=== PATIENT | female | born 1945 | race African-American/Black ===

== ENCOUNTER 2019-06-26 19:56 | Inpatient (IN) ==
[2019-06-26] MEDS ORDERED: 0.9 % Sodium Chloride 1,000 ML ONE (20:08)
[2019-06-26] MEDS ORDERED: 0.9 % Sodium Chloride 1,000 ML IVC ONE ×2 (20:13→21:44)
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
[2019-06-26 20:38] LABS: Basophils % 0.1 %; Hematocrit 37.3 % (35.3-44.9); Hemoglobin 13.2 g/dL (11.5-15.4); Immature Granulocytes % 0.7 % (0-4); Lymphocytes # 0.9 K/mcL (0.6-4.6); Lymphocytes % 5.2 %; Mean Corpuscular HGB Conc 35.4 g/dL (31.6-35.5); Mean Corpuscular Hemoglobin 31.4 pg (28.0-33.3); Mean Corpuscular Volume 88.6 fL (83.0-100.0); Mean Platelet Volume 10.5 fL (9.4-12.4); Monocytes # 1.4 K/mcL (0.0-1.3); Monocytes % 8.2 %; Neutrophils # 14.4 K/mcL (1.6-8.9); Platelet Count 230 K/mcL (140-400); Red Blood Count 4.21 M/mcL (3.82-4.97); Red Cell Distribution Width 12.3 % (11.5-14.5); Segmented Neutrophils % 85.8 %; White Blood Count 16.8 K/mcL (4.3-11.1)
[2019-06-26 20:46] LABS: INR 1.2; Prothrombin Time 13.5 Seconds (9.4-12.1)
[2019-06-26 20:49] LABS: Activated Partial Thrombo Time 30.1 Seconds (26.0-36.0)
[2019-06-26] MEDS ORDERED: Piperacillin/Tazobactam 3.375 GM in 0.9 % Sodium Chloride Mini Bag 100 ML IVPB ONE (20:50)
[2019-06-26 20:56] LABS: Alanine Aminotransferase 25 Units/L (7-52); Albumin 3.6 g/dL (3.5-5.7); Albumin/Globulin Ratio 1.1 (1.1-2.2); Alkaline Phosphatase 61 Units/L (34-104); Aspartate Amino Transferase 33 Units/L (13-39); BUN/Creatinine Ratio 21 (6-26); Bilirubin,Direct 0.9 mg/dL (0.0-0.2); Bilirubin,Indirect 0.8 mg/dL (0.0-1.2); Bilirubin,Total 1.7 mg/dL (0.3-1.0); Blood Urea Nitrogen 21 mg/dL (8-23); Calcium 8.9 mg/dL (8.6-10.3); Carbon Dioxide 23 mEq/L (23-29); Chloride 94 mEq/L (98-107); Globulin 3.4 g/dL (2.4-3.5); Glucose 121 mg/dL (70-105); Magnesium 1.9 mg/dL (1.6-2.6); Osmolality,Calculated 274 (280-300); Phosphorous 2.2 mg/dL (2.7-4.5); Potassium 3.6 mEq/L (3.5-5.1); Sodium 130 mEq/L (136-145); Troponin I 0.03 ng/mL (< 0.04); eGFR For African Americans > 60 (> 60); eGFR For Non-African Americans 54 (> 60)
[2019-06-26 21:08] LABS: Thyroid Stimulating Hormone 0.723 mcIU/mL (0.340-5.600)
--- NOTE | 2019-06-26 21:09 | Emergency Department Note ---
Disposition Clinical Impression: Hyponatremia Sepsis Qualifiers: Sepsis type: sepsis due to unspecified organism Sepsis acute organ dysfunction status: unspecified Qualified Code(s): A41.9 - Sepsis, unspecified organism Pneumonia Qualifiers: Pneumonia type: due to unspecified organism Laterality: right Lung location: lower lobe of lung Qualified Code(s): J18.1 - Lobar pneumonia, unspecified organism Altered mental status Qualifiers: Altered mental status type: unspecified Qualified Code(s): R41.82 - Altered mental status, unspecified Disposition: Admitted As Inpatient Condition: Fair Time of Disposition: 21:54 General Adult HPI - General Chief complaint: ED Fever Stated complaint: fever Time Seen by Provider: 06/26/19 20:09 Source: patient, family, EMS Mode of arrival: EMS Limitations: altered mental status - History of Present Illness Pain Scale: 0 - Related Data Home Medications Medication Instructions Recorded Confirmed Cetirizine HCl [Zyrtec] 10 mg PO DAILY PRN 06/26/19 06/26/19 Losartan/HCTZ [Hyzaar 50-12.5 1 tab PO DAILY 06/26/19 06/26/19 Tablet] Allergies Allergy/AdvReac Type Severity Reaction Status Date / Time No Known Allergies Allergy Verified 06/26/19 21:39 Constitutional: Reports: fever. Denies: chills, weakness Cardiovascular: Denies: chest pain, palpitations, dyspnea on exertion Respiratory: Reports: cough. Denies: dyspnea, wheezes, sputum production Gastrointestinal: Reports: abdominal pain, nausea, vomiting, diarrhea. Denies: hematemesis, hematochezia Genitourinary: Denies: dysuria, hematuria Musculoskeletal: Denies: back pain, neck pain Neurological: Denies: headache Endocrine: Reports: fatigue Past Medical History - Past Medical History Medical history: Reports: hypertension - Social History Smoking Status: Former smoker Alcohol use: Reports: none Drug use: Reports: none Physical Exam - General Limitations: altered mental status General appearance: alert, in no apparent distress Course Vital Signs Temperature 103.1 F H 06/26/19 20:04 Pulse Rate 109 06/26/19 20:04 Respiratory Rate 06/26/19 20:04 Blood Pressure 141/70 06/26/19 20:04 O2 Sat by Pulse Oximetry 99 06/26/19 20:04 Temperature 102.7 F H 06/26/19 21:18 Pulse Rate 103 06/26/19 21:18 Respiratory Rate 16 06/26/19 21:18 Blood Pressure 119/80 06/26/19 21:18 O2 Sat by Pulse Oximetry 98 06/26/19 21:18 Oxygen Delivery Oxygen Delivery Room Air Medical Decision Making - Lab Data Result diagrams: 06/26/19 20:20 06/26/19 20:20 Lab Results 06/26/19 06/26/19 06/26/19 Range/Units 20:20 20:20 20:20 WBC 16.8 H (4.3-11.1) K/mcL RBC 4.21 (3.82-4.97) M/mcL Hgb 13.2 (11.5-15.4) g/dL Hct 37.3 (35.3-44.9) % MCV 88.6 (83.0-100.0) fL MCH 31.4 (28.0-33.3) pg MCHC 35.4 (31.6-35.5) g/dL RDW 12.3 (11.5-14.5) % Plt Count 230 (140-400) K/mcL MPV 10.5 (9.4-12.4) fL Immature Gran % 0.7 (0-4) % Seg Neutrophils % 85.8 % Lymphocytes % 5.2 % Monocytes % 8.2 % Eosinophils % 0.0 % Basophils % 0.1 % Neutrophils # 14.4 H (1.6-8.9) K/mcL Lymphocytes # 0.9 (0.6-4.6) K/mcL Monocytes # 1.4 H (0.0-1.3) K/mcL Eosinophils # 0.0 (0.0-0.6) K/mcL Basophils # 0.0 (0.0-0.2) K/mcL PT 13.5 H (9.4-12.1) Seconds INR 1.2 APTT 30.1 (26.0-36.0) Seconds Sodium 130 L (136-145) mEq/L Potassium 3.6 (3.5-5.1) mEq/L Chloride 94 L (98-107) mEq/L Carbon Dioxide 23 (23-29) mEq/L BUN 21 (8-23) mg/dL Creatinine 1.01 (0.60-1.20) mg/dL Est GFR ( Amer) > 60 (> 60) Est GFR (Non-Af Amer) 54 L (> 60) BUN/Creatinine Ratio 21 (6-26) Glucose 121 H (70-105) mg/dL POC Glucose (70-99) mg/dL Calculated Osmolality 274 L (280-300) Lactic Acid (0.5-2.2) mmol/L Calcium 8.9 (8.6-10.3) mg/dL Phosphorus 2.2 L (2.7-4.5) mg/dL Magnesium 1.9 (1.6-2.6) mg/dL Total Bilirubin 1.7 H (0.3-1.0) mg/dL Direct Bilirubin 0.9 H (0.0-0.2) mg/dL Indirect Bilirubin 0.8 (0.0-1.2) mg/dL AST 33 (13-39) Units/L ALT 25 (7-52) Units/L Alkaline Phosphatase 61 (34-104) Units/L Creatine Kinase 410 H (30-223) Units/L Troponin I 0.03 (< 0.04) ng/mL Serum Total Protein 7.0 (6.4-8.9) g/dL Albumin 3.6 (3.5-5.7) g/dL Globulin 3.4 (2.4-3.5) g/dL Albumin/Globulin Ratio 1.1 (1.1-2.2) TSH 0.723 (0.340-5.600) mcIU/mL Urine Color (Yellow) Urine Clarity (Clear) Urine pH (5.0-8.0) pH Units Ur Specific [place] (1.010-1.025) Urine Protein (Neg-Trace) mg/dL Urine Glucose (UA) (Normal) mg/dL Urine Ketones (Negative) mg/dL Urine Blood (Negative) Urine Nitrite (Negative) Urine Bilirubin (Negative) Urine Urobilinogen (Normal) mg/dL Ur Leukocyte Esterase (Negative) Urine Microscopic RBC (0-3) per hpf Urine Microscopic WBC (0-3) per hpf Ur Squamous Epith Cells (None-Few) per lpf Urine Bacteria (None-Few) per hpf Hyaline Casts (None-Few) per lpf Ur Culture Indicated? (NO) 09/03/19 09/03/19 09/03/19 Range/Units 20:20 20:21 21:07 WBC (4.3-11.1) K/mcL RBC (3.82-4.97) M/mcL Hgb (11.5-15.4) g/dL Hct (35.3-44.9) % MCV (83.0-100.0) fL MCH (28.0-33.3) pg MCHC (31.6-35.5) g/dL RDW (11.5-14.5) % Plt Count (140-400) K/mcL MPV (9.4-12.4) fL Immature Gran % (0-4) % Seg Neutrophils % % Lymphocytes % % Monocytes % % Eosinophils % % Basophils % % Neutrophils # (1.6-8.9) K/mcL Lymphocytes # (0.6-4.6) K/mcL Monocytes # (0.0-1.3) K/mcL Eosinophils # (0.0-0.6) K/mcL Basophils # (0.0-0.2) K/mcL PT (9.4-12.1) Seconds INR APTT (26.0-36.0) Seconds Sodium (136-145) mEq/L Potassium (3.5-5.1) mEq/L Chloride (98-107) mEq/L Carbon Dioxide (23-29) mEq/L BUN (8-23) mg/dL Creatinine (0.60-1.20) mg/dL Est GFR ( Amer) (> 60) Est GFR (Non-Af Amer) (> 60) BUN/Creatinine Ratio (6-26) Glucose (70-105) mg/dL POC Glucose 104 H (70-99) mg/dL Calculated Osmolality (280-300) Lactic Acid 1.1 (0.5-2.2) mmol/L Calcium (8.6-10.3) mg/dL Phosphorus (2.7-4.5) mg/dL Magnesium (1.6-2.6) mg/dL Total Bilirubin (0.3-1.0) mg/dL Direct Bilirubin (0.0-0.2) mg/dL Indirect Bilirubin (0.0-1.2) mg/dL AST (13-39) Units/L ALT (7-52) Units/L Alkaline Phosphatase (34-104) Units/L Creatine Kinase (30-223) Units/L Troponin I (< 0.04) ng/mL Serum Total Protein (6.4-8.9) g/dL Albumin (3.5-5.7) g/dL Globulin (2.4-3.5) g/dL Albumin/Globulin Ratio (1.1-2.2) TSH (0.340-5.600) mcIU/mL Urine Color Dark Yellow (Yellow) Urine Clarity Cloudy A (Clear) Urine pH 5.5 (5.0-8.0) pH Units Ur Specific [place] 1.027 H (1.010-1.025) Urine Protein 100 H (Neg-Trace) mg/dL Urine Glucose (UA) Normal (Normal) mg/dL Urine Ketones 15 H (Negative) mg/dL Urine Blood Moderate H (Negative) Urine Nitrite Negative (Negative) Urine Bilirubin Moderate H (Negative) Urine Urobilinogen 2.0 H (Normal) mg/dL Ur Leukocyte Esterase Moderate H (Negative) Urine Microscopic RBC 0-3 (0-3) per hpf Urine Microscopic WBC 50-100 H (0-3) per hpf Ur Squamous Epith Cells Many H (None-Few) per lpf Urine Bacteria None Seen (None-Few) per hpf Hyaline Casts Moderate H (None-Few) per lpf Ur Culture Indicated? YES A (NO) S.B.A.R. - S.B.A.R. Situation: Demographics, MOA Background: Presenting Complaint, Relevant PMH, Meds, & Allergies Assessment: Vital Signs, Course and respsone to treatment, Exam Concerns, Patient/Family Expectation, Pertinant Lab Results Recommendation: Barrier(s) to disposition, Recommendation based on pending studies, treatments, or consults (n) S.B.A.R. Report Given to: Dr. Duncan CastellanosAFlorian Repor Time: 21:52 Attestation Statement - Attestation Attestation: Nel Oneal D.O., examined this patient and my medical decision-making was reviewed with the Resident Physician. I agree with the documented findings, disposition and treatment plan as described except to the extent set forth below. 74-year-old female presents with family with a chief complaint of altered mental status and fever. Patient is alert and oriented 2. Family reports that today they went over to her house, they tried to get her to open the door but she would not after half an hour they had to have police busted or down. The patient was alert and awake just could not get to the door. The patient states that she was hurting all over earlier today. She also had a cough as well as vomiting and diarrhea. Exam: Patient is alert and oriented 2, no acute distress. Noted to be febrile. Heart is tachycardic, regular rhythm. Lungs have diminished breath sounds bilaterally. Abdomen is soft, nontender, no guarding or rigidity. Alert and oriented 2. She follows commands. Moves all extremity is equally. Sensation normal in the upper and lower extremity. No drift. Plan: Sepsis evaluation, EKG, chest x-ray, CT abdomen and pelvis, labs, and lactic acid and blood cultures. We will start broad-spectrum IV antibiotics and anticipate admission. ED Procedure Note: EKG interpretation - I agree with the resident physician's documentation and interpretation of the patient's EKG. Sinus tachycardia with a rate of 109. Left axis deviation. Normal intervals. Normal R-wave progression. No gross ST elevations or depressions. No acute ischemic findings. X-ray and CT reviewed. She has right lower lobe pneumonia. Leukocytosis of 17. Patient was given vancomycin, Zosyn and Levaquin. CT head unremarkable. Admitted to the hospitalist service, Dr. Coulter.
[2019-06-26 21:14] LABS: Bilirubin,Urine Moderate (Negative); Blood,Urine Moderate (Negative); Clarity,Urine Cloudy (Clear); Glucose,Urine (UA) Normal (Normal); Ketones,Urine 15 mg/dL (Negative); Leukocyte Esterase,Urine Moderate (Negative); Nitrite,Urine Negative (Negative); PH,Urine 5.5 pH Units (5.0-8.0); Protein,Urine 100 mg/dL (Neg-Trace); Specific Gravity,Urine 1.027 (1.010-1.025)
[2019-06-26 21:16] LABS: Bacteria,Urine None Seen per hpf (None-Few); Color,Urine Dark Yellow (Yellow); Hyaline Casts,Urine Moderate per lpf (None-Few); RBC,Urine 0-3 per hpf (0-3); Squamous Epithelial Cell,Urine Many per lpf (None-Few); WBC,Urine 50-100 per hpf (0-3)
[2019-06-26 21:24] LABS: Creatine Kinase 410 Units/L (30-223)
[2019-06-26] MEDS ORDERED: levoFLOXacin 750 MG/150 ML 750 MG/150 ML BAG IVPB ONE (21:28)
[2019-06-27] MEDS ORDERED: Naloxone 0.4 MG/ML INJ IVP PRN (00:30)
[2019-06-27] MEDS ORDERED: Ondansetron ODT 4 MG TAB.RAPDIS SL PRN (00:30)
--- NOTE | 2019-06-27 01:10 | Internal Med History&Physical ---
Date of Encounter: 06/27/19 Time of Encounter: 01:06 Internal Medicine - H&P: HPI Chief complaint: fever, weakness Admitted From: Home History of present illness: Ms. Vizcaino is a 74 year old pleasant elderly functional female with past medical history of hypertension, multiple history of UTIs around 3 this past year presented to the ED for weakness and high fever. Patient states that the fever started suddenly on Tuesday with productive cough of yellow phlegm and sob progressively getting worse throughout the weekend. The patient tried laying down and resting with no alleviation or exacerbating factor. Patient denied any choking or dysphagia but reports has been drinking water otherwise no solids. Patient also states that her weakness has progressively worsening, constant and was unable take more than 2 steps even to the bathroom. Patient's family member also noted this change and thus brought to the ED. Patient baseline is ind ependent, and can do all ADL. Patient denies any lung disease, smoking, drinking or drugs. Patient's family history of mother and father both significant for [place] and father side with brain cancer. Patient denied recent surgeries-hysterectomy many years back. Patient otherwise denied any nausea, vomiting, dysuria, abdominal pain, diarrhea, chest pain, new skin lesion. History was also obtained from family member niece who stated the patient has been worsening weakness especially today with intermittent confusion and not being able to know the current year.CODE STATUS was discussed in detail and the patient proceeded with full code. Patient's was seen in [id number] contact 00:10 AM. Past Med Surg Social Fam HX - Past Medical History Medical history: hypertension - Social History Smoking Status: Former smoker Alcohol use: none Drug use: none Internal Medicine - H&P: Meds Cetirizine HCl [Zyrtec] 10 mg PO DAILY PRN 06/26/19 [History] Losartan/HCTZ [Hyzaar 50-12.5 Tablet] 1 tab PO DAILY 06/26/19 [History] Allergy/AdvReac Type Severity Reaction Status Date / Time No Known Allergies Allergy Verified 06/26/19 21:39 All Systems PM: A 10-system review of systems was performed and is negative for pertinent findings except as documented above in the HPI. Review of systems: General: No unintentional weightloss,+ fever,+ night sweats. Head: No pain, No injury, No ulcers. Ears: No discharge, No tenderness. Eyes: No drainage, No erythema. Mouth and Throat: No ulcers, No erythema No tendernss. Nose and Sinus: No discharge, No sinus pain, Respiratory: + cough, + sputum production, + dyspnea Cardiovascular: No chest pain, No palpitations. Gastrointestinal: No nausea, No vomiting. No abdominal tenderness. Genital Tract: No discharge, No pain, no lesion Urinary Tract: No dysuria, No discharge. MSK: No new/worsening joint pain or new/worsening muscle ache. Endocrine: No cold intolerance, No polyuria Psychological: No suicidal, No homocidal ideation. - Constitutional Vitals: Temp Pulse Resp BP Pulse Ox 99.1 F 78 15 91/53 96 06/26/19 23:06/26/19 23:06/26/19 23:06/26/19 23:06/26/19 23:31 Exam: General Appearance: Appearing as age, well-nourished in no acute distress. Head: Atraumatic normocephalic Skin: Normal texture, normal turgor, warm, dry. Eyes: Conjunctivae not pale with no erythema, drainage, or ulcers. Anicteric. Neck: No Lymphadenopathy in the anterior/posterior cervical chain. No thyromegaly, masses or ulcers. Trachea midline. Heart: RRR, no murmurs. Capillary refill 3 seconds Lungs: No accessory muscle usage, lungs clear to auscultation left side, right lung diffuse crackles worse basilar . Extremities: No pitting edema, clubbing, cyanosis, or ulcers. Abdomen: Non-distended, normoactive bowel sounds. non-tender to palpation,no hepatomegally. No guarding. Neuro: AOx3 with no new focal deficits. MSK: Strength 5/5 Upper extremity equal bilaterally. Strength 5/5 Lower extremity equal bilaterally Internal Med - H&P Results - Labs CBC & Chem 7: 06/27/19 01:56 06/27/19 01:56 Labs: Short CBC 06/26/19 Range/Units 20:20 WBC 16.8 H (4.3-11.1) K/mcL Hgb 13.2 (11.5-15.4) g/dL Hct 37.3 (35.3-44.9) % Plt Count 230 (140-400) K/mcL Neutrophils # 14.4 H (1.6-8.9) K/mcL BMP 06/26/19 20:20 Sodium 130 L Potassium 3.6 Chloride 94 L Carbon Dioxide 23 BUN 21 Creatinine 1.01 Glucose 121 H Calcium 8.9 Cardiac Enzymes 06/26/19 Range/Units 20:20 Troponin I 0.03 (< 0.04) ng/mL Liver Function 06/26/19 Range/Units 20:20 Total Bilirubin 1.7 H (0.3-1.0) mg/dL Direct Bilirubin 0.9 H (0.0-0.2) mg/dL AST 33 (13-39) Units/L ALT 25 (7-52) Units/L Alkaline Phosphatase 61 (34-104) Units/L Albumin 3.6 (3.5-5.7) g/dL Urine 06/26/19 Range/Units 21:07 Urine Color Dark Yellow (Yellow) Urine Clarity Cloudy A (Clear) Urine pH 5.5 (5.0-8.0) pH Units Ur Specific Line [place] 1.027 H (1.010-1.025) Urine Protein 100 H (Neg-Trace) mg/dL Urine Glucose (UA) Normal (Normal) mg/dL - Impressions ITS Impressions Abdomen/Pelvis CT 06/26/19 20:10 IMPRESSION: 1. Consolidation at the right lung base which is most compatible with pneumonia. 2. No acute intra-process identified. 3. Colonic diverticulosis without CT evidence for diverticulitis. D/ / Tung Martinez MD / Tung Martinez MD Interpreting Provider: Tung Martinez MD Chest X-Ray 06/26/19 20:10 IMPRESSION: Dense patchy right basilar consolidation likely representing pneumonia. Given history, aspiration could be considered. D/ / Rosa Walters Cha, MD / Rosa Walters Cha, MD Interpreting Provider: Rosa Walters Cha, MD Head CT 06/26/19 20:10 IMPRESSION: No acute intracranial abnormality. D/ / 06/26/2019 22:31:11 Leola Milian MD / morrisay Interpreting Provider: Leola Milian MD - Summary of Assessment and Plan Summary of Assessment and Plan: 1.Severe sepsis: Etiology secondary to pneumonia. procalcitonin, Sputum culture, strep antigen, blood culture, urine culture pending. vancomycin, Zosyn. Discontinued Levaquin 2.Community acquired pnuemonia: as above. MRSA swab pending. In the meantime continue Vanc, and zosyn. D/c vanc if swab MRSA negative. 3.Hypovolemic hyponatremia: Secondary to oral intake and sepsis. IVF and a.m. recheck. 3.Uncontrolled type 2 diabetes with normal gap: A1c ordered, and insulin sliding scale. 4.Hypophosphatemia: Replaced 5. Elevated total bili: No sign of jaundice, or abdominal pain. Continue to monitor. 6.Hematuria: minimal rbc, with elevated CPK. 7.pyuria noted however patient UA contains protein. ordered Urine eosinophil, and repeat UA in a.m after volume resuscitation. likely dehydration given hyaline cast, and elevated specific gravity. DVT prophylaxis: Heparin Disposition: inpatient likely more than 2 days for IV antibiotics. - Time Spent With Patient Total time spent is greater than 37minutes 50% in coordination of care (as documented) at patient's floor/unit and/or counseling patient: Greater than 35 minutes
[2019-06-27 02:15] LABS: Basophils % 0.2 %; Hematocrit 35.5 % (35.3-44.9); Immature Granulocytes % 0.8 % (0-4); Lymphocytes % 6.5 %; Mean Corpuscular HGB Conc 33.8 g/dL (31.6-35.5); Mean Corpuscular Hemoglobin 30.5 pg (28.0-33.3); Mean Corpuscular Volume 90.3 fL (83.0-100.0); Mean Platelet Volume 10.5 fL (9.4-12.4); Monocytes # 1.3 K/mcL (0.0-1.3); Monocytes % 8.4 %; Neutrophils # 12.9 K/mcL (1.6-8.9); Platelet Count 202 K/mcL (140-400); Red Blood Count 3.93 M/mcL (3.82-4.97); Red Cell Distribution Width 12.4 % (11.5-14.5); Segmented Neutrophils % 84.1 %; White Blood Count 15.3 K/mcL (4.3-11.1)
[2019-06-27 02:35] LABS: Alanine Aminotransferase 23 Units/L (7-52); Albumin 3.2 g/dL (3.5-5.7); Albumin/Globulin Ratio 1.1 (1.1-2.2); Alkaline Phosphatase 54 Units/L (34-104); Aspartate Amino Transferase 34 Units/L (13-39); BUN/Creatinine Ratio 22 (6-26); Bilirubin,Total 1.3 mg/dL (0.3-1.0); Blood Urea Nitrogen 20 mg/dL (8-23); Calcium 7.9 mg/dL (8.6-10.3); Carbon Dioxide 20 mEq/L (23-29); Chloride 101 mEq/L (98-107); Glucose 138 mg/dL (70-105); Magnesium 1.8 mg/dL (1.6-2.6); Osmolality,Calculated 279 (280-300); Phosphorous 2.6 mg/dL (2.7-4.5); Potassium 3.2 mEq/L (3.5-5.1); Sodium 132 mEq/L (136-145); Total Protein 6.2 g/dL (6.4-8.9); eGFR For African Americans > 60 (> 60); eGFR For Non-African Americans > 60 (> 60)
[2019-06-27 03:26] LABS: Bilirubin,Urine Negative (Negative); Blood,Urine Moderate (Negative); Clarity,Urine Clear (Clear); Color,Urine Yellow (Yellow); Glucose,Urine (UA) Normal (Normal); Ketones,Urine Trace mg/dL (Negative); Leukocyte Esterase,Urine Moderate (Negative); Nitrite,Urine Negative (Negative); Protein,Urine 30 mg/dL (Neg-Trace); Specific Gravity,Urine 1.018 (1.010-1.025); Urobilinogen,Urine Normal (Normal)
[2019-06-27 03:28] LABS: Bacteria,Urine None Seen per hpf (None-Few); Hyaline Casts,Urine None Seen per lpf (None-Few); RBC,Urine 0-3 per hpf (0-3); Squamous Epithelial Cell,Urine Many per lpf (None-Few); WBC,Urine 30-50 per hpf (0-3)
[2019-06-27] MEDS ORDERED: Potassium Chloride Elixir 20 MEQ/15 ML UDC PO ONE (04:57)
[2019-06-27] MEDS ORDERED: Azithromycin 500 MG in 0.9 % Sodium Chloride 250 ML IVPB SCH (09:00)
[2019-06-27 09:16] LABS: Estimated Average Glucose 111 mg/dl
[2019-06-27] MEDS: Ampicillin/Sulbactam 3,000 MG in 0.9 % Sodium Chloride Mini Bag 100 ML IVPB SCH ×2 (11:07→13:26)
--- NOTE | 2019-06-27 11:18 | Electrocardiograph Report ---
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
--- NOTE | 2019-06-27 14:19 | Event Note ---
Date of Encounter: 06/27/19 Time of Encounter: 09:35 Patient was seen this morning. She is 74-year-old female who came to the hospital with fever, generalized weakness, shortness of breath and productive sputum production. Her symptoms are measures following: Sepsis: - Secondary to pneumonia. Patient today is afebrile and hemodynamically stable. On room air. Leukocytosis is improving. - Blood cultures are negative, strep pneumococcus antigen is negative. Pending Legionella antigen. - Continue with Unasyn and azithromycin. No risk factor for Pseudomonas. Elevated bilirubin: - Improving, likely from sepsis. Hypokalemia: - Repleted, check BMP tomorrow DVT prophylaxis: Subcutaneous heparin. -
[2019-06-27] MEDS ORDERED: Acetaminophen 325 MG TABLET PO PRN (17:40)
[2019-06-27] MEDS: *HR* Heparin 5,000 UNIT/ML VIAL SQ SCH (17:42)
[2019-06-27] MEDS ORDERED: Ampicillin/Sulbactam 3,000 MG in 0.9 % Sodium Chloride Mini Bag 100 ML IVPB SCH (18:00)
[2019-06-28] MEDS: Acetaminophen 325 MG TABLET PO PRN ×2 (03:04→12:30)
[2019-06-28 05:58] LABS: Hematocrit 34.1 % (35.3-44.9); Hemoglobin 11.7 g/dL (11.5-15.4); Mean Corpuscular HGB Conc 34.3 g/dL (31.6-35.5); Mean Corpuscular Hemoglobin 30.3 pg (28.0-33.3); Mean Corpuscular Volume 88.3 fL (83.0-100.0); Mean Platelet Volume 11.2 fL (9.4-12.4); Platelet Count 204 K/mcL (140-400); Red Blood Count 3.86 M/mcL (3.82-4.97); Red Cell Distribution Width 12.6 % (11.5-14.5); White Blood Count 12.4 K/mcL (4.3-11.1)
[2019-06-28 06:17] LABS: BUN/Creatinine Ratio 21 (6-26); Blood Urea Nitrogen 18 mg/dL (8-23); Calcium 8.3 mg/dL (8.6-10.3); Carbon Dioxide 22 mEq/L (23-29); Chloride 101 mEq/L (98-107); Glucose 107 mg/dL (70-105); Magnesium 2.1 mg/dL (1.6-2.6); Osmolality,Calculated 276 (280-300); Potassium 3.5 mEq/L (3.5-5.1); Sodium 132 mEq/L (136-145); eGFR For African Americans > 60 (> 60); eGFR For Non-African Americans > 60 (> 60)
[2019-06-28] MEDS: *HR* Heparin 5,000 UNIT/ML VIAL SQ SCH ×2 (06:23→17:00)
--- NOTE | 2019-06-28 12:36 | Internal Med Progress Note ---
Hospitalist Progress Note - Encounter Date of Encounter: 06/28/19 Time of Encounter: 09:40 - Subjective Interval History: Patient was seen this morning. She feels better but she still feeling weak and she denied chest pain, shortness of breath or palpitation. She remained afebrile overnight however she had low-grade temperature this morning. She suzanna ed nausea/vomiting or abdominal pain. - Exam Vitals: Temp Pulse Resp BP Pulse Ox 100.9 F H 90 16 114/63 96 06/28/19 10:42 06/28/19 10:42 06/28/19 10:42 06/28/19 10:42 06/28/19 10:42 Exam: General: Patient is alert, oriented 3. Head: Atraumatic, normal inspection, normocephalic. Eye: EOMI, PERRLA, no scleral icterus noted. ENT: Mucous membranes moist. Neck: Normal inspection Respiratory: Right basilar crackles Cardiovascular: Regular rate and regular rhythm, S1 and S2 audible. No murmurs, rubs, or gallops. GI: Soft, nondistended, normal bowel sounds. Extremities:No joint swelling, pedal edema, or tenderness noted. Neurological: Alert, oriented 3, no focal deficits. Psychiatric: normal affect, normal mood. Skin: Dry, intact, warm. Normal color. No rashes. - Assessment and Plan (1) Legionella pneumonia Current Visit: Yes Status: Acute (2) DVT prophylaxis Current Visit: Yes Status: Acute (3) Leukocytosis Current Visit: Yes Status: Acute (4) Sepsis Current Visit: Yes Status: Acute - Summary of Assessment and Plan Summary of Assessment and Plan: Patient was seen this morning. She is 74-year-old female who came to the [facility] with fever, generalized weakness, shortness of breath and productive sputum production. Her symptoms are measures following: Sepsis: - Secondary to Legionella pneumonia. Patient today is hemodynamically stable, had low-grade temperature this morning. On room air. Leukocytosis is improving. - Blood cultures are negative, strep pneumococcus antigen is negative. Legionella antigen is positive. - Switch Unasyn and azithromycin to Levaquin. Leukocytosis: Improving . secondary to above. Elevated bilirubin: Improving, likely from sepsis. Hypokalemia: Resolved. DVT prophylaxis: Subcutaneous heparin. - - Time Spent with Patient Total time spent is greater than 50% in coordination of care (as documented) at patient's floor/unit and/or counseling patient: Plan of Care Discussed with: patient Internal Medicine: Result - Labs CBC & Chem 7: 06/28/19 05:18 06/28/19 05:18 Labs: Short CBC 06/28/19 Range/Units 05:18 WBC 12.4 H (4.3-11.1) K/mcL Hgb 11.7 (11.5-15.4) g/dL Hct 34.1 L (35.3-44.9) % Plt Count 204 (140-400) K/mcL BMP 06/28/19 05:18 Sodium 132 L Potassium 3.5 Chloride 101 Carbon Dioxide 22 L BUN 18 Creatinine 0.85 Glucose 107 H Calcium 8.3 L - ABG Interpretation ABG results: PT/INR, D-dimer PT 13.5 Seconds (9.4-12.1) H 06/26/19 20:20 Consult Discharge Plan - Plan Referrals: Kareem Angela DO [Primary Care Provider] - (3) Leukocytosis Qualifiers: Leukocytosis type: unspecified Qualified Code(s): D72.829 - Elevated white blood cell count, unspecified (4) Sepsis Qualifiers: Sepsis type: sepsis due to unspecified organism Sepsis acute organ dysfunction status: without acute organ dysfunction Qualified Code(s): A41.9 - Sepsis, unspecified organism
[2019-06-28] MEDS ORDERED: levoFLOXacin 750 MG/150 ML 750 MG/150 ML BAG IVPB SCH ×2 (13:00→18:30)
[2019-06-29 05:16] LABS: Hematocrit 32.7 % (35.3-44.9); Hemoglobin 11.5 g/dL (11.5-15.4); Mean Corpuscular HGB Conc 35.2 g/dL (31.6-35.5); Mean Corpuscular Hemoglobin 31.3 pg (28.0-33.3); Mean Corpuscular Volume 88.9 fL (83.0-100.0); Mean Platelet Volume 10.9 fL (9.4-12.4); Platelet Count 221 K/mcL (140-400); Red Blood Count 3.68 M/mcL (3.82-4.97); Red Cell Distribution Width 12.9 % (11.5-14.5); White Blood Count 12.2 K/mcL (4.3-11.1)
[2019-06-29] MEDS: *HR* Heparin 5,000 UNIT/ML VIAL SQ SCH ×2 (05:19→17:24)
[2019-06-29 05:35] LABS: BUN/Creatinine Ratio 19 (6-26); Blood Urea Nitrogen 15 mg/dL (8-23); Calcium 7.9 mg/dL (8.6-10.3); Carbon Dioxide 22 mEq/L (23-29); Chloride 98 mEq/L (98-107); Glucose 100 mg/dL (70-105); Osmolality,Calculated 267 (280-300); Potassium 3.8 mEq/L (3.5-5.1); Sodium 128 mEq/L (136-145); eGFR For African Americans > 60 (> 60); eGFR For Non-African Americans > 60 (> 60)
[2019-06-29] MEDS: 0.9 % Sodium Chloride 1,000 ML IVC SCH (09:17)
--- NOTE | 2019-06-29 13:15 | Internal Med Progress Note ---
Hospitalist Progress Note - Encounter Date of Encounter: 06/29/19 Time of Encounter: 10:00 - Subjective Interval History: Patient was seen this morning. She still feels weak however she feels better compared to before. She is coughing with white sputum production. She denied chest pain or shortness of breath. She has no nausea/vomiting or abdominal pain. - Exam Vitals: Temp Pulse Resp BP Pulse Ox 99.3 F 84 15 103/65 94 06/29/19 10:08 06/29/19 10:08 06/29/19 10:08 06/29/19 10:08 06/29/19 10:08 Exam: General: Patient is alert, oriented 3. Head: Atraumatic, normal inspection, normocephalic. Eye: EOMI, PERRLA, no scleral icterus noted. ENT: Mucous membranes moist. Neck: Normal inspection Respiratory: Right basilar crackles Cardiovascular: Regular rate and regular rhythm, S1 and S2 audible. No murmurs, rubs, or gallops. GI: Soft, nondistended, normal bowel sounds. Extremities:No joint swelling, pedal edema, or tenderness noted. Neurological: Alert, oriented 3, no focal deficits. Psychiatric: normal affect, normal mood. Skin: Dry, intact, warm. Normal color. No rashes. - Assessment and Plan (1) Legionella pneumonia Current Visit: Yes Status: Acute (2) Leukocytosis Current Visit: Yes Status: Acute (3) Sepsis Current Visit: Yes Status: Resolved (4) DVT prophylaxis Current Visit: Yes Status: Acute (5) Hyponatremia Current Visit: Yes Status: Acute - Summary of Assessment and Plan Summary of Assessment and Plan: Patient was seen this morning. She is 74-year-old female who came to the hospital with fever, generalized weakness, shortness of breath and productive sputum production. Her symptoms are measures following: Sepsis: - Secondary to Legionella pneumonia. Patient today is hemodynamically stable, afebrile. On room air. Leukocytosis is improving. - Blood cultures are negative, strep pneumococcus antigen is negative. Legionella antigen is positive. - On Levaquin day 2. Leukocytosis: Improving . secondary to above. Hyponatremia: Likely second to Legionella infection, we will give IV fluids and check BMP tomorrow. Elevated bilirubin: Improving, likely from sepsis. Hypokalemia: Resolved. DVT prophylaxis: Subcutaneous heparin. - - Time Spent with Patient Total time spent is greater than 50% in coordination of care (as documented) at patient's floor/unit and/or counseling patient: Plan of Care Discussed with: patient Internal Medicine: Result - Labs CBC & Chem 7: 06/29/19 04:42 06/29/19 04:42 Labs: Short CBC 06/29/19 Range/Units 04:42 WBC 12.2 H (4.3-11.1) K/mcL Hgb 11.5 (11.5-15.4) g/dL Hct 32.7 L (35.3-44.9) % Plt Count 221 (140-400) K/mcL BMP 06/29/19 04:42 Sodium 128 L Potassium 3.8 Chloride 98 Carbon Dioxide 22 L BUN 15 Creatinine 0.77 Glucose 100 Calcium 7.9 L - ABG Interpretation ABG results: PT/INR, D-dimer PT 13.5 Seconds (9.4-12.1) H 06/26/19 20:20 Consult Discharge Plan - Plan Referrals: Kareem Angela DO [Primary Care Provider] - _ (2) Leukocytosis Qualifiers: Leukocytosis type: unspecified Qualified Code(s): D72.829 - Elevated white blood cell count, unspecified (3) Sepsis Qualifiers: Sepsis type: sepsis due to unspecified organism Sepsis acute organ dysfunction status: without acute organ dysfunction Qualified Code(s): A41.9 - Sepsis, unspecified organism
[2019-06-29] MEDS: levoFLOXacin 750 MG/150 ML 750 MG/150 ML BAG IVPB SCH (17:24)
[2019-06-30] MEDS: *HR* Heparin 5,000 UNIT/ML VIAL SQ SCH ×2 (05:25→17:02)
[2019-06-30] MEDS: 0.9 % Sodium Chloride 1,000 ML IVC SCH (05:26)
[2019-06-30 07:27] LABS: Hematocrit 34.7 % (35.3-44.9); Hemoglobin 12.1 g/dL (11.5-15.4); Mean Corpuscular HGB Conc 34.9 g/dL (31.6-35.5); Mean Corpuscular Hemoglobin 30.5 pg (28.0-33.3); Mean Corpuscular Volume 87.4 fL (83.0-100.0); Mean Platelet Volume 10.7 fL (9.4-12.4); Platelet Count 250 K/mcL (140-400); Red Blood Count 3.97 M/mcL (3.82-4.97); White Blood Count 12.1 K/mcL (4.3-11.1)
[2019-06-30 07:38] LABS: BUN/Creatinine Ratio 19 (6-26); Blood Urea Nitrogen 13 mg/dL (8-23); Calcium 8.1 mg/dL (8.6-10.3); Carbon Dioxide 24 mEq/L (23-29); Chloride 102 mEq/L (98-107); Glucose 109 mg/dL (70-105); Osmolality,Calculated 275 (280-300); Potassium 3.8 mEq/L (3.5-5.1); Sodium 132 mEq/L (136-145); eGFR For African Americans > 60 (> 60); eGFR For Non-African Americans > 60 (> 60)
--- NOTE | 2019-06-30 11:41 | Internal Med Progress Note ---
Hospitalist Progress Note - Encounter Date of Encounter: 06/30/19 Time of Encounter: 10:40 - Subjective Interval History: No major events overnight. Patient was seen this a.m. sHe denied fever, chills or night sweats. sHe has no nausea, vomiting or abdominal pain. Patient denied chest pain, shortness of breath or palpitation. - Exam Vitals: Temp Pulse Resp BP Pulse Ox 98.0 F 63 14 93/56 91 06/30/19 07:24 06/30/19 07:24 06/30/19 07:24 06/30/19 07:06/30/19 07:24 Exam: General: Patient is alert, oriented 3. Head: Atraumatic, normal inspection, normocephalic. Eye: EOMI, PERRLA, no scleral icterus noted. ENT: Mucous membranes moist. Neck: Normal inspection Respiratory: Right basilar crackles Cardiovascular: Regular rate and regular rhythm, S1 and S2 audible. No murmurs, rubs, or gallops. GI: Soft, nondistended, normal bowel sounds. Extremities:No joint swelling, pedal edema, or tenderness noted. Neurological: Alert, oriented 3, no focal deficits. Psychiatric: normal affect, normal mood. Skin: Dry, intact, warm. Normal color. No rashes. - Assessment and Plan (1) Legionella pneumonia Current Visit: Yes Status: Acute (2) Leukocytosis Current Visit: Yes Status: Acute (3) Sepsis Current Visit: Yes Status: Resolved (4) DVT prophylaxis Current Visit: Yes Status: Acute (5) Hyponatremia Current Visit: Yes Status: Resolved - Summary of Assessment and Plan Summary of Assessment and Plan: Patient was seen this morning. She is 74-year-old female who came to the hospital with fever, generalized weakness, shortness of breath and productive sputum production. Her symptoms are measures following: Sepsis: - Secondary to Legionella pneumonia. Patient today is hemodynamically stable, afebrile. On room air. Leukocytosis is improving. - Blood cultures are negative, strep pneumococcus antigen is negative. Legionella antigen is positive. - On Levaquin day 3. Leukocytosis: Improving . secondary to above. Hyponatremia: Improved, Likely second to Legionella infection. Elevated bilirubin: Improving, likely from sepsis. Hypokalemia: Resolved. DVT prophylaxis: Subcutaneous heparin. - - Time Spent with Patient Total time spent is greater than 50% in coordination of care (as documented) at patient's floor/unit and/or counseling patient: Greater than 35 minutes Plan of Care Discussed with: patient Internal Medicine: Result - Labs CBC & Chem 7: 06/30/19 07:05 06/30/19 07:05 Labs: Short CBC 06/30/19 Range/Units 07:05 WBC 12.1 H (4.3-11.1) K/mcL Hgb 12.1 (11.5-15.4) g/dL Hct 34.7 L (35.3-44.9) % Plt Count 250 (140-400) K/mcL BMP 06/30/19 07:05 Sodium 132 L Potassium 3.8 Chloride 102 Carbon Dioxide 24 BUN 13 Creatinine 0.67 Glucose 109 H Calcium 8.1 L - ABG Interpretation ABG results: PT/INR, D-dimer PT 13.5 Seconds (9.4-12.1) H 06/26/19 20:20 Consult Discharge Plan - Plan Referrals: Kareem Angela DO [Primary Care Provider] - (2) Leukocytosis Qualifiers: Leukocytosis type: unspecified Qualified Code(s): D72.829 - Elevated white blood cell count, unspecified (3) Sepsis Qualifiers: Sepsis type: sepsis due to unspecified organism Sepsis acute organ dys function status: without acute organ dysfunction Qualified Code(s): A41.9 - Sepsis, unspecified organism
[2019-06-30] MEDS: levoFLOXacin 750 MG/150 ML 750 MG/150 ML BAG IVPB SCH (14:22)
[2019-07-01] MEDS: *HR* Heparin 5,000 UNIT/ML VIAL SQ SCH ×2 (05:28→16:57)
[2019-07-01 05:41] LABS: Hematocrit 31.4 % (35.3-44.9); Hemoglobin 10.9 g/dL (11.5-15.4); Mean Corpuscular HGB Conc 34.7 g/dL (31.6-35.5); Mean Corpuscular Hemoglobin 30.5 pg (28.0-33.3); Mean Platelet Volume 10.9 fL (9.4-12.4); Platelet Count 268 K/mcL (140-400); Red Blood Count 3.57 M/mcL (3.82-4.97); Red Cell Distribution Width 13.3 % (11.5-14.5); White Blood Count 12.2 K/mcL (4.3-11.1)
--- NOTE | 2019-07-01 10:35 | Internal Med Progress Note ---
Hospitalist Progress Note - Encounter Date of Encounter: 07/01/19 Time of Encounter: 08:35 - Subjective Interval History: No major events overnight. Patient was seen this a.m. sHe denied fever, chills or night sweats. sHe has no nausea, vomiting or abdominal pain. Patient denied chest pain, shortness of breath or palpitation. - Exam Vitals: Temp Pulse Resp BP Pulse Ox 98.1 F 73 17 108/70 97 07/01/19 07:51 07/01/19 07:51 07/01/19 07:51 07/01/19 07:51 07/01/19 07:51 Exam: General: Patient is alert, oriented 3. Head: Atraumatic, normal inspection, normocephalic. Eye: EOMI, PERRLA, no scleral icterus noted. ENT: Mucous membranes moist. Neck: Normal inspection Respiratory: Right basilar crackles Cardiovascular: Regular rate and regular rhythm, S1 and S2 audible. No murmurs, rubs, or gallops. GI: Soft, nondistended, normal bowel sounds. Extremities:No joint swelling, pedal edema, or tenderness noted. Neurological: Alert, oriented 3, no focal deficits. Psychiatric: normal affect, normal mood. Skin: Dry, intact, warm. Normal color. No rashes. - Assessment and Plan (1) Legionella pneumonia Current Visit: Yes Status: Acute (2) Leukocytosis Current Visit: Yes Status: Acute (3) Sepsis Current Visit: Yes Status: Resolved (4) DVT prophylaxis Current Visit: Yes Status: Acute (5) Hyponatremia Current Visit: Yes Status: Resolved - Summary of Assessment and Plan Summary of Assessment and Plan: Patient was seen this morning. She is 74-year-old female who came to the hospital with fever, generalized weakness, shortness of breath and productive sputum production. Her symptoms are measures following: Sepsis: - Secondary to Legionella pneumonia. Patient today is hemodynamically stable, afebrile. On room air. Leukocytosis is improving. - Blood cultures are negative, strep pneumococcus antigen is negative. Legionella antigen is positive. On Levaquin day 4. Leukocytosis: Improving . secondary to above. Hyponatremia: Improved, Likely second to Legionella infection. Elevated bilirubin: Improving, likely from sepsis. Hypokalemia: Resolved. DVT prophylaxis: Subcutaneous heparin. Disposition: Patient initially wanted to go to [facility] however she changed her mind today [facility] Will D/w delinquency prevention social worker tomorrow. Discharge tomorrow. - - Time Spent with Patient Total time spent is greater than 50% in coordination of care (as documented) at patient's floor/unit and/or counseling patient: Plan of Care Discussed with: patient Internal Medicine: Result - Labs CBC & Chem 7: 07/01/19 05:01 06/30/19 07:05 Labs: Short CBC 07/01/19 Range/Units 05:01 WBC 12.2 H (4.3-11.1) K/mcL Hgb 10.9 L (11.5-15.4) g/dL Hct 31.4 L (35.3-44.9) % Plt Count 268 (140-400) K/mcL - ABG Interpretation ABG results: PT/INR, D-dimer PT 13.5 Seconds (9.4-12.1) H 06/26/19 20:20 Consult Discharge Plan - Plan Referrals: Kareem Angela DO [Primary Care Provider] - (2) Leukocytosis Qualifiers: Leukocytosis type: unspecified Qualified Code(s): D72.829 - Elevated white b lood cell count, unspecified (3) Sepsis Qualifiers: Sepsis type: sepsis due to unspecified organism Sepsis acute organ dysfunction status: without acute organ dysfunction Qualified Code(s): A41.9 - Sepsis, unspecified organism
[2019-07-01] MEDS: levoFLOXacin 750 MG/150 ML 750 MG/150 ML BAG IVPB SCH (14:00)
[2019-07-02] MEDS: *HR* Heparin 5,000 UNIT/ML VIAL SQ SCH (05:39)
[2019-07-02] MEDS: levoFLOXacin 750 MG/150 ML 750 MG/150 ML BAG IVPB SCH (14:01)
[2019-07-02 14:13] VITALS: BP 101/66
--- NOTE | 2019-07-02 15:45 | Discharge Summary ---
- NOTES TO OUTPATIENT PROVIDER Notes to Outpatient Provider: Patient was admitted for Legionella pneumonia about 6 days of Levaquin. She has 1 more day on Levaquin. Date of Encounter: 07/02/19 Time of Encounter: 09:00 - Discharge Diagnosis (1) Legionella pneumonia Priority: Primary Status: Acute (2) Leukocytosis Priority: Secondary Status: Resolved Qualifiers: Leukocytosis type: unspecified Qualified Code(s): D72.829 - Elevated white blood cell count, unspecified (3) Sepsis Priority: Secondary Status: Resolved Qualifiers: Sepsis type: sepsis due to unspecified organism Sepsis acute organ dysfunction status: without acute organ dysfunction Qualified Code(s): A41.9 - Sepsis, unspecified organism (4) DVT prophylaxis Priority: Secondary Status: Acute (5) Hyponatremia Priority: Secondary Status: Resolved Hospital course: Ms. Vizcaino is a 74 year old female who was admitted for sepsis related to Legionella pneumonia. Patient received IV Levaquin with significant improvement in her symptoms. She is to have 1 dose to finish total of 7 days of antibiotics. Patient remained afebrile and hemodynamically stable throughout hospitalization. She will be discharged to rehabilitation for PT/OT. She is stable at discharge. Discharge discussed with: patient - Time Spent with Patient Total time spent providing and/or coordinating discharge services: 50 minutes - Discharge Medications Prescriptions: New levoFLOXacin [Levaquin] 750 mg PO DAILY 1 Days #1 tablet Continued Losartan/HCTZ [Hyzaar 50-12.5 Tablet] 1 tab PO DAILY Cetirizine HCl [Zyrtec] 10 mg PO DAILY PRN PRN Reason: Allergic Symptoms Home Medications: Cetirizine HCl [Zyrtec] 10 mg PO DAILY PRN 06/26/19 [History] Losartan/HCTZ [Hyzaar 50-12.5 Tablet] 1 tab PO DAILY 06/26/19 [History] levoFLOXacin [Levaquin] 750 mg PO DAILY 1 Days #1 tablet 07/02/19 [Rx] Allergies/Adverse Reactions: Allergy/AdvReac Type Severity Reaction Status Date / Time No Known Allergies Allergy Verified 06/26/19 21:39 Date of admission: 06/26/19 21:53 Primary care physician: Inocencio Angela DO Consults: 06/27/19 07:00 Consult to Speech Therapy [CONS] Routine Comment: Evaluate, develop and implement POC Reason for Consult: dysphagia and concern for aspiration. Call Completed: No 06/27/19 08:35 Consult to Nurse Navigator [CONS] Routine Comment: selina 06/28/19 10:08 Consult to Occupational Therapy [CONS] Routine Comment: Evaluate, develop and implement POC Reason for Consult: evaluate the need for skilled placement Does patient have active BEDREST order?: No Is patient medically & hemodynamically stable?: Yes Consult to Physical Therapy [CONS] Routine Comment: Evaluate, develop and implement POC Reason for Consult: evaluate the need for skilled placement Does patient have active BEDREST order?: No Is patient medically & hemodynamically stable?: Yes - Constitutional Vitals: Temp Pulse Resp BP Pulse Ox 97.8 F 100 15 101/66 96 07/02/19 14:08 07/02/19 14:08 07/02/19 14:08 07/02/19 14:08 07/02/19 14:08 Exam: General: Patient is alert, oriented 3. Head: Atraumatic, normal inspection, normocephalic. Eye: EOMI, PERRLA, no scleral icterus noted. ENT: Mucous membranes moist. Neck: Normal inspection Respiratory: Normal to auscultation Cardiovascular: Regular rate and regular rhythm, S1 and S2 audible. No murmurs, rubs, or gallops. GI: Soft, nondistended, normal bowel sounds. Extremities:No joint swelling, pedal edema, or tenderness noted. Neurological: Alert, oriented 3, no focal deficits. Psychiatric: normal affect, normal mood. Skin: Dry, intact, warm. Normal color. No rashes. - Patient Status Disposition: Transfer SNF Condition: Good Functional capacity at discharge: independent ambulation Overall status at discharge: patient is back to baseline - Discharge Instructions Follow Up With: Kareem Angela DO [Primary Care Provider] - - Diet and Activity Activity: as per physical therapy Diet: regular diet
--- NOTE | 2019-07-02 15:47 | Physician Discharge Referral ---
ExtendedCare Referral Info Transfer To: F Provider in Charge after Transfer: PCP Institutional Level of Care: Skilled - Diagnosis (1) Legionella pneumonia Priority: Primary Status: Acute (2) Leukocytosis Priority: Secondary Status: Resolved (3) Sepsis Priority: Secondary Status: Resolved (4) DVT prophylaxis Priority: Secondary Status: Acute (5) Hyponatremia Priority: Secondary Status: Resolved Prognosis: Good - Transfer Medications Prescriptions: levoFLOXacin [Levaquin] 750 mg PO DAILY 1 Days #1 tablet Home Medications: Cetirizine HCl [Zyrtec] 10 mg PO DAILY PRN 06/26/19 [History] Losartan/HCTZ [Hyzaar 50-12.5 Tablet] 1 tab PO DAILY 06/26/19 [History] levoFLOXacin [Levaquin] 750 mg PO DAILY 1 Days #1 tablet 07/02/19 [Rx] Allergies/Adverse Reactions: Allergy/AdvReac Type Severity Reaction Status Date / Time No Known Allergies Allergy Verified 06/26/19 21:39 - Respiratory Orders None Smoking Cessation: Smoking cessation has been advised. For more information, call the [place] Tobacco Quit Line at 6-042-HGHGNOW. - Rehabiliation Orders Rehab Orders: Evaluation for Physical Therapy, Evaluation for Occupational Therapy - Diet Orders Regular CERTIFICATION: I certify that the transfer of the above named patient to an Extended Care Facility is necessary for the continuing treatment of the diagnosis listed. The above information is true and accurate reflection of patient's current condition. Confidential - Redisclosure prohibited without a patient's written consent.
== END 2019-07-02 17:09 | DRG 871 ==
LOC: EMEROOARM 19:56 → SUATTDRO 21:53 → 3ANU 21:53
PROVIDERS: ADMIT Family Medicine; ATTEND Internal Medicine